=== PATIENT | male | born 1975 | race Two or more races ===

== ENCOUNTER 2024-09-12 17:01 | Emergency (ER) | payer MEDICAID ==
[~2024-09-12] VITALS: Ht 188 cm; Wt 121.5 kg
[2024-09-12 17:29] VITALS: BP 155/81; PULSE 102; RESP 20; TEMP 95; O2SAT 95
--- NOTE | 2024-09-12 17:50 | ED.PDOC ---
Epistaxis- HPI HPI Comments 49 y/o M presents with c/o right sided epistaxis, today. Patient endorses on onset of epistaxis, last night. He comments on nosebleed that required 20x minutes prior to controlling it during first episode and bleeding recurring a second time, while at work. Patient admits to history of epistaxis in the past but never as sever. He also complains of a lump to his epigastric area that, suddenly, appeared 1x month ago. Patient reports to recent "CMOS" and "K3 Salt" use 1x month ago in order to loose weight as the only recent event in his life. Patient denies any dizziness, lightheadedness, weakness, vision or speech changes, or other associated symptoms or modifiers at this time. Chief Complaint: Nose Bleed Time Seen by MD: 17:30 Reviewed Notes: Nurses Notes, Medications, Allergies Allergies: Coded Allergies: NO KNOWN ALLERGIES (Unverified , 09/12/24) Information Source: Patient Mode of Arrival: Ambulatory Timing: Hours Duration: Since onset Prehospital treatment: Other (see HPI) Location: Right naris Past Medical History Past Medical History (Other): obesity Surgical History: Denies all surgeries Family History Family History: Unknown Social History Smoker: Non-Smoker Alcohol: Denies ETOH Use Drugs: Denies Drug Use Lives In: Home All Other Systems: Reviewed and Negative (Comprehensive systems review obtained and negative except for what is stated in the HPI.) Physical Exam General Appearance: No Apparent Distress, Normal HEENT: Pharynx Normal, TMs Normal, Other (Small amount of dried blood in the patient's right nares, no bleeding in the back of the throat) Neck: Full Range of Motion, Non-Tender, Normal, Normal Inspection Respiratory: Chest Non-Tender, Lungs Clear, No Accessory Muscle Use, No Respiratory Distress, Normal Breath Sounds Cardiovascular: No Edema, No JVD, No Murmur, No Gallop, Normal Peripheral Pulses, Regular Rate/Rhythm Breast Exam: Deferred Gastrointestinal: No Organomegaly, Non Tender, No Pulsatile Mass, Normal Bowel Sounds, Soft Genitalia: Deferred Pelvic: Deferred Rectal: Deferred Extremities: No calf tenderness, Normal capillary refill, Normal inspection, Normal range of motion, Non-tender, No pedal edema Musculoskeletal : Apperance: Normal Neurologic: Alert, bug trimmer II-XII nml as Tested, No Motor Deficits, Normal Affect, Normal Mood, No Sensory Deficits Cerebellar Function: Normal Reflexes: Normal Skin: Dry, Normal Color, Warm Lymphatic: No Adenopathy Was a procedure done? Was a procedure done?: Yes Sedation Sedation?: No Other Procedure Procedure Nasal clamp placement Indication right nare epistaxis Anesthetic none Prep none Success cessation of nasal bleeding Informed consent obtained: Yes Risks, benefits, and alternati: Yes Differential Diagnosis (NSB) Differential Diagnosis: Anterior Nasal Bleed, Posterior Nasal Bleed, Foreign Body, Coagulopathy X-Ray, Labs, Meds, VS Vital Signs Date Time Temp Pulse Resp B/P (MAP) Pulse Ox O2 Delivery O2 Flow Rate FiO2 09/12/24 17:29 95.0 102 20 155/81 (105) 95 95.0 X-Ray, Labs, Meds, VS Comment 49-year-old male here with complaints of epistaxis with a history of the same. Vital signs stable, afebrile. Physical exam with evidence of bleeding from his right nares. Nasal clamp was applied for about 15 minutes with cessation of bleed. Patient was observed for about 20 minutes afterwards with no further bleeding. Doubt posterior nasal bleed. Patient was given instructions on how to manage bleeds in the future and instructions to avoid picking his nose or scratching. Strict return precautions were provided for persistent nosebleed after 20 minutes of holding compression, headaches, vision changes, numbness, weakness, chest pain, coughing up blood, vomiting blood, or any other signs or symptoms of a posterior nasal bleed which were explained to the patient. Patient was discharged home with instructions to follow up with his primary care provider for further evaluation and for consideration of a coagulopathy workup if the patient has further nosebleeds. Time of 1ST Reevaluation: 18:00 Reevaluation 1ST: Resolved Patient Education/Counseling: Diagnosis, Treatment, Need For Follow Up Family Education/Counseling: No Family Present Departure 1 Departure Time of Disposition: 20:31 Impression: Primary Impression: Epistaxis Disposition: 01 HOME / SELF CARE / HOMELESS Condition: Stable Critical Care Note Critical Care Time?: No Stability Stability form required: No Heart Score Heart Score: Heart Score Response (Comments) Value History N/A 0 EKG N/A 0 Age N/A 0 Risk Factors N/A 0 Troponin N/A 0 Total 0 FARTUN SPEARS Sep 12, 2024 17:50 ANDREA MOYA MD Sep 12, 2024 20:35
== END 2024-09-12 20:59 | disposition home or self-care (01) ==
LOC: ER 17:01
DX: R04.0 Epistaxis (principal); E66.9 Obesity, unspecified